=== PATIENT | female | born 1945 | race Caucasian/White ===

== ENCOUNTER → 2020-03-01 | Outpatient (CLI) | payer MEDICARE ==
--- NOTE | 2020-03-01 09:38 | KCIC ---
EXAM: Renal sonogram. HISTORY: Renal failure. TECHNIQUE: Sonographic imaging the kidneys and bladder was performed. COMPARISON: None. FINDINGS: The right kidney measures 11.8 cm [id number] and the left kidney measures 12.2 cm [id number]. There is a 3.8 cm simple appearing cyst within the upper pole of the left kidney. There is severe bilateral hydronephrosis. The proximal right ureter measures 2.6 cm in caliber of the proximal left ureter measures 2.9 cm in caliber. There is a distended urinary bladder with prevoid volume of 845 cc and post void volume of 649 cc. IMPRESSION: 1. Severe bilateral hydronephrosis and hydroureter extending to a distended urinary bladder with large post void residual of 649 cc. Correlate for bladder outlet obstruction. 2. 3.8 cm simple left renal cyst. Follow-up is not routinely recommended for simple cysts. Electronically signed by: Hillary Valerio MD (03/01/2020 9:34 AM) [id number]
== END ==
LOC: EDSEX 08:41 → KCIC US 08:41
PROVIDERS: ATTEND Internal Medicine Nephrology
DX: N28.1 Cyst of kidney, acquired (principal); N13.39 Other hydronephrosis; N32.89 Other specified disorders of bladder; N32.0 Bladder-neck obstruction; N17.9 Acute kidney failure, unspecified
CPT/HCPCS: 76770